=== PATIENT | female | born 1955 | race Caucasian/White ===

== ENCOUNTER → 2023-08-26 | Outpatient (CLI) | payer MEDICARE | END | disposition home or self-care (01) | LOC: RAH 10:55 → EDSEX 10:55 | PROVIDERS: ATTEND Internal Medicine | DX: K76.89 Other specified diseases of liver (principal); K82.9 Disease of gallbladder, unspecified; K82.4 Cholesterolosis of gallbladder; D18.00 Hemangioma unspecified site | CPT/HCPCS: 76700 ==

== ENCOUNTER → 2023-08-27 | Outpatient (CLI) | payer MEDICARE | END | disposition home or self-care (01) | LOC: EDSEX → RAH 10:20 | PROVIDERS: ATTEND Internal Medicine | DX: K82.9 Disease of gallbladder, unspecified (principal) | CPT/HCPCS: 78227; A9537 ==

== ENCOUNTER → 2023-10-21 | Outpatient (CLI) | payer MEDICARE ==
[~2023-10-21] MED LIST: IOHEXOL 350 MG/ML 100ML INFUS..BTL IV ONE
== END | disposition home or self-care (01) ==
LOC: RAH 10:11
PROVIDERS: ATTEND Student in an Organized Health Care Education/Training Program
DX: R07.9 Chest pain, unspecified (principal); M47.815 Spondylosis without myelopathy or radiculopathy, thoracolumbar region
CPT/HCPCS: 75574; Q9967

== ENCOUNTER → 2023-10-25 | Outpatient (CLI) | payer MEDICARE | END | disposition home or self-care (01) | LOC: SHCH 08:59 | PROVIDERS: ATTEND Student in an Organized Health Care Education/Training Program | DX: I11.9 Hypertensive heart disease without heart failure (principal) | CPT/HCPCS: 93306 ==

== ENCOUNTER 2024-11-07 09:15 | Emergency (ER) | payer MEDICARE ==
[~2024-11-07] VITALS: Ht 162.6 cm; Wt 77.1 kg
--- NOTE | 2024-11-07 11:23 | ERN ---
ED Note History of Present Illness Stated Complaint: STIFF NECK Chief Complaint: Neck Pain Time Seen by MD: 10:31 Dictation: PATIENT IS A 69-YEAR-OLD FEMALE COMING IN TODAY WITH NON TRAUMA BILATERAL LATERAL CERVICAL PAIN WITH SPASM FOR MORE THAN 10 DAYS. NO FEVER NO CHILLS NO NAUSEA VOMITING. SHE HAS ALREADY BEEN TO HER PRIMARY CARE DOCTOR WHO TOLD HER SHE HAD AN INFECTION PUT HER ON BACTRIM AND TOLD HER TO TAKE TYLENOL. SHE THEN WAS REFERRED TO A CHIROPRACTOR WHO TOLD HER BECAUSE OF THE AMOUNT OF INFLAMMATION HE COULD NOT SEE YOUR UNTIL SHE HAD THE INFORMATION REDUCED. NEUROVASCULAR CMS INTACT TO ALL EXTREMITIES SHE DOES STATE SHE HAS A HISTORY OF OSTEOARTHRITIS. Allergies: Coded Allergies: Penicillins (Unverified Allergy, Unknown, 11/07/24) Past Medical History Past Medical History: No Pertinent History Surgical History: Cholecystectomy History: Not Applicable RN Note Reviewed/Agreed w/PFSH: Yes Review of System Dictation CONSTITUTIONAL: NEGATIVE EXCEPT FOR HPI HEAD/FACE: NEGATIVE EXCEPT FOR HPI EENT: NEGATIVE EXCEPT FOR HPI RESPIRATORY: NEGATIVE EXCEPT FOR HPI GASTROINTESTINAL/ABDOMINAL: NEGATIVE EXCEPT FOR HPI GENITOURINARY: NEGATIVE EXCEPT FOR HPI MUSCULOSKELETAL: NEGATIVE EXCEPT FOR HPI BILATERAL POSTERIOR LATERAL NECK PAIN INTEGUMENTARY: NEGATIVE EXCEPT FOR HPI NEUROLOGICAL/PSYCH: NEGATIVE EXCEPT FOR HPI HEMATOLOGIC/LYMPHATIC: NEGATIVE EXCEPT FOR HPI ALL SYSTEMS NEGATIVE, EXCEPT NOTED ABOVE. 13 POINT REVIEW OF SYSTEMS ASSESSED AND ALL NEGATIVE EXCEPT FOR ABOVE. Initial Vital Sign VS Vital Signs Date Time Temp Pulse Resp B/P (MAP) Pulse Ox O2 Delivery O2 Flow Rate FiO2 11/07/24 09:17 98.8 84 16 177/92 97 Room Air Physical Exam Dictation VITAL SIGNS REVIEWED GENERAL APPEARANCE: ALERT, ORIENTED X 3, MODERATE ACUTE DISTRESS, WELL DEVELOPED, NOURISHED. HEAD AND FACE: NON-TRAUMATIC. EYES: PERRL, PINK CONJUNCTIVAS, EYELID NO TRAUMA, ANTERIOR CHAMBER WITH ARCUS SENILIS. EARS: PINNAS INTACT AND NO SIGNS OF TRAUMA OR ERYTHEMA EAR CANALS CLEAR AND NO DISCHARGE TM NO ERYTHEMA NOSE: NO DISCHARGE, NO BLEEDING. OROPHARYNX: MOUTH NORMAL, TONGUE PINK, PHARYNX CLEAR,NO ERYTHEMA, TONSILS NO EXUDATES, NO ABSCESSES NOTED, MUCOUS MEMBRANE MOIST NECK: NO MIDLINE SPINE PAIN, POSITIVE BILATERAL SPINAL MUSCLE SPASM., NO THYROMEGALY, NO MASSES, NO JVD, NO BRUITS BREAST:DEFERRED CHEST:NO TENDERNESS, NO CREPITUS, NO PARADOXICAL MOVEMENT, NO RETRACTIONS LUNGS:CLEAR, WELL-VENTILATED, SYMMETRIC, NO RALES, NO WHEEZING, NO RHONCHI, NO STRIDOR, GOOD BREATH SOUNDS BILATERALLY HEART: REGULAR RATE, REGULAR RHYTHM, NO MURMUR, NO GALLOPS VASCULAR: NO PERIPHERAL EDEMA, ABDOMEN: SOFT, POSITIVE BOWEL SOUNDS, NONDISTENDED, NO GUARDING, NONTENDER, NO REBOUND, NO MASSES NO HEPATOMEGALY, NO SPLENOMEGALY, NO ANDRADE'S SIGN, NO HERNIAS. RECTAL: DEFERRED GENITAL: DEFERRED NEUROLOGICAL: NORMAL SPEECH, MOTOR FUNCTION INTACT, SENSORY FUNCTION INTACT NEUROVASCULAR CMS INTACT TO ALL EXTREMITIES MUSCULOSKELETAL: NECK SEE ABOVE NOTE, FULL RANGE OF MOTION, BACK NONTENDER, FULL RANGE OF MOTION, EXTREMITIES: NONTENDER, FULL RANGE OF MOTION SKIN: COLOR PINK, DRY, NO TURGOR, NO RASH, NO LACERATIONS, NO ABRASIONS, NO CON TUSIONS. LYMPHATIC: DEFERRED Results (Laboratory/Radiology) Laboratory/Radiology 1330/CERVICAL X-RAY DEMONSTRATES DEGENERATIVE CHANGES ONLY. Labs Reviewed?: Yes ED Course ED Course Orders Procedure Category Date Status Time Hydrocodone/Apap PHA 11/07/24 Complete 5/325 ([place] 5/325mg) 11:30 Cyclobenzaprine Hcl PHA 11/07/24 Complete (Cyclobenzaprine Hcl 11:30 Dexamethasone 4mg/Ml PHA 11/07/24 Complete 1ml Vial (Dexametha 11:30 Ketorolac PHA 11/07/24 Complete Tromethamine 30mg/Ml 11:30 Cerv Spine 2-3vws RAD 11/07/24 Taken 11:20 Current Medications Medications (Trade) Dose Ordered Sig/Teo Route PRN Reason Start Time Stop Time Status Last Admin Dose Admin Acetaminophen/ Hydrocodone Bitart (NORco 5/325MG) 1 tab ONCE ONCE PO 11/07/24 11:30 11/07/24 11:31 DC 11/07/24 11:32 Cyclobenzaprine HCl (Cyclobenzaprine HCl) 10 mg ONCE ONCE PO 11/07/24 11:30 11/07/24 11:31 DC 11/07/24 11:32 Dexamethasone Sodium Phosphate (dexaMETHasone 4MG/ML 1ML VIAL) 8 mg ONCE ONCE IM 11/07/24 11:30 11/07/24 11:31 DC 11/07/24 11:32 Ketorolac Tromethamine (toRADol) 30 mg ONCE ONCE IM 11/07/24 11:30 11/07/24 11:31 DC 11/07/24 11:32 Vital Signs Date Time Temp Pulse Resp B/P (MAP) Pulse Ox O2 Delivery O2 Flow Rate FiO2 11/07/24 09:17 98.8 84 16 177/92 97 Room Air 1330/PATIENT WILL BE MEDICATED FOR PAIN WITH A COMPOUND OF MEDICATIONS. SHE WILL BE DISCHARGED HOME WITH HER FRIEND TO SEE HER PRIMARY CARE DOCTOR ON Friday FOR MANAGEMENT. SHE WILL BE SENT HOME WITH IBUPROFEN/FLEXERIL/MEDROL DOSEPAK Medical Decision Making MDM MEDICAL DISCHARGE MAKING BASED ON PAIN MANAGEMENT EMPIRICALLY FOR NECK PAIN SPASM AND CERVICAL SPINE X-RAY. SPINE X-RAY NEGATIVE EXCEPT FOR DEGENERATIVE CHANGES PATIENT MEDICATED FROM THE WAITING ROOM WITH MEDICATIONS AND TOLD TO SEE HER PRIMARY CARE DOCTOR Friday FOR MANAGEMENT. NEUROVASCULAR CMS INTACT TO ALL EXTREMITIES DX & DISP Disposition: Discharge Departure Impression: Primary Impression: Arthralgia, cervical spine Additional Impression: DJD (degenerative joint disease), cervical Condition: Stable Scripts Acetaminophen with Codeine (Acetaminophen-Cod #3 Tablet) 300 Mg-30 Mg Tablet 1 TAB PO Q4H PRN for MODERATE TO SEVERE PAIN, #15 TAB 0 Refills Prov: HAMLET HANSEN [employer] 11/07/24 Ibuprofen (Ibuprofen 800 mg Tab) 800 Mg Tab 800 MG PO Q8H PRN for fever or pain, #30 TAB 0 Refills Prov: HAMLET HANSEN [employer] 11/07/24 Cyclobenzaprine HCl (Cyclobenzaprine HCl) 10 Mg Tablet 1 TAB PO TID for muscle spasms for 10 Days, #30 TAB 0 Refills Prov: HAMLET HANSEN [employer] 11/07/24 Additional Instructions: Follow-up with primary care provider in 1 to 2 days. Take medications as directed here in the emergency room. Okay to continue home medications unless otherwise discussed during your visit in the emergency room today. Return to your nearest emergency room if symptoms worsen or if there is no improvement. Call 911 if you need immediate assistance. Take Tylenol or Motrin [id number] as needed and if no contraindications are present. Increase oral hydration. A wound culture or urine culture was ordered here in the emergency room department please follow-up with primary care provider and advise them to get repeat ports from our facility. If you had any Yuval wrap/splints that were applied here, please do not remove them until you see your primary care or specialty. Take ibuprofen and Flexeril every8 hours with food for the next three days. Warm compresses to neck three to 4 times a day. See your primary care doctor for follow up, recommend MRI if pain continues Referrals: MARY CARMEN HARMON (PCP) Time of Disposition: 13:34 I have reviewed the case, and I agree with, Diagnosis and Plan HAMLET HANSEN NP Nov 07, 2024 11:23
[2024-11-07] MEDS: CYCLOBENZAPRINE HCL 10 MG TABLET PO ONE (11:32)
[2024-11-07] MEDS: dexaMETHasone SOD PHOSPHATE 4 MG/ML 1ML VIAL IM ONE (11:32)
[2024-11-07] MEDS: ketOROlac 30MG VIAL (30MG/ML) IM ONE (11:32)
[2024-11-07] MEDS: HYDROcodone/APAP 5/325 1 TAB TABLET PO ONE (11:32)
--- NOTE | 2024-11-07 11:33 | NUR ---
MOVED PT INTO INTERNAL WAITING AREA FOR MEDICATION ADM
[2024-11-07] MEDS ORDERED: IBUP-2077 PO (13:35)
[2024-11-07] MEDS ORDERED: ACET-2079 PO (13:35)
[2024-11-07] MEDS ORDERED: CYCL-309 PO (13:35)
--- NOTE | 2024-11-07 13:39 | HMCIMG ---
CERV SPINE 2-3VWS HISTORY: NON TRAUMA BILATERAL POSTERIOR LATERAL NECK PAIN 10 DAYS TECHNIQUE: 4 image/s obtained. FINDINGS AND IMPRESSION: No evidence of compression fracture or dislocation. Nonspecific straightening of curvature likely positional. Mild degenerative changes are seen Prevertebral soft tissues are within normal limits. If there is additional clinical concern, consider CT.
--- NOTE | 2024-11-07 14:22 | NUR ---
MOVED PT INTO INTERNAL WAITING AREA FOR DC INSTRUCTIONS
[2024-11-07 14:25] VITALS: BP 152/76; PULSE 80; RESP 18; TEMP 98.6; O2SAT 97
== END 2024-11-07 14:27 | disposition home or self-care (01) ==
LOC: EDH 09:15
DX: M47.812 Spondylosis without myelopathy or radiculopathy, cervical region (principal); Z88.0 Allergy status to penicillin; Z90.49 Acquired absence of other specified parts of digestive tract
CPT/HCPCS: 99284; 72040; 96372 ×2; J1100; J1885